=== PATIENT | male | born 1930 | race Caucasian/White ===

== ENCOUNTER 2016-06-08 09:23 | Emergency (ER) | payer MEDICARE ==
[2016-06-08] MEDS ORDERED: Ondansetron ODT 4 MG TAB ONE (09:46)
[2016-06-08 10:13] LABS: Bacteria/HPF 2+ HPF (None Seen); Squamous Epithelial 0-3 HPF (0-3)
[2016-06-08 10:27] LABS: ALT (SGPT) 14 U/L (0-55); AST (SGOT) 12 U/L (5-34); Alkaline Phosphatase 57 U/L (40-150); Anion Gap 14 mmol/L (10-20); BUN (Urea Nitrogen) 39 mg/dL (8.4-25.7); Bilirubin, Total 1.8 mg/dL (0.2-1.2); Calc. Creatinine Clearance 0 mL/min (70-130); Calcium 8.6 mg/dL (7.8-10.44); Carbon Dioxide 21 mmol/L (23-31); Chloride 105 mmol/L (98-107); Estimated GFR-MDRD 40; Globulin 2.7 g/dL (2.4-3.5); Protein, Total 6.5 g/dL (5.8-8.1)
[2016-06-08 11:01] LABS: Band 3 % (5-11); Hematocrit 40.7 % (42.0-52.0); Mean Platelet Volume 8.2 fL (7.4-10.4); Neutrophil 63 % (42-75); Red Blood Cell (RBC) Count 4.25 mill/uL (4.70-6.10); White Blood Cell (WBC) Count 29.3 thou/uL (4.8-10.8)
[2016-06-08] MEDS ORDERED: Sodium Chloride 0.9% 500 ML ONE (11:03)
[2016-06-08] MEDS ORDERED: cefTRIAXone\\ROCEPHIN 1 GM VIAL ONE (11:03)
--- NOTE | 2016-06-08 12:26 | ERRECORD ---
[facility] EMERGENCY RECORD HPI UTI (11:05 [facility]) CHIEF COMPLAINT: Patient presents for evaluation of urinary tract infection signs or symptoms:, dysuria, frequency, Patient presents for evaluation of Pt with UTI symptoms since yesterday. Also feels 'bad all over'. Dry heaves this am. Still with nausea. No other symptoms. HISTORIAN: History provided by patient. QUALITY: no pain. TIME COURSE: Gradual onset of symptoms, Symptoms are worsening, are constant. ASSOCIATED WITH: No associated abdominal pain, No associated chills, Associated with diarrhea, Number of times: 2 today, 3 yesterday, No associated fever, No associated flank pain, Associated with loss of appetite, Associated with nausea. EXACERBATED BY: Patient's condition exacerbated by nothing. RELIEVED BY: Patient's condition relieved by nothing. ROS (11:06 OY) CONSTITUTIONAL: Historian denies chills, denies fever. EYES: Historian denies eye pain, denies eye redness, denies eye discharge. ENT: Historian denies rhinorrhea, denies sore throat. CARDIOVASCULAR: Historian denies chest pain. RESPIRATORY: Historian denies cough, denies shortness of breath, denies sputum. GI: Historian denies abdominal pain, reports diarrhea, reports nausea. dry heaves. MUSCULOSKELETAL: Historian denies back pain. NEUROLOGIC: Historian denies dizziness, denies headache. PAST MEDICAL HISTORY MEDICAL HISTORY: Flu vaccine not up to date, Tetanus immunization up to date, Pneumococcal vaccine up to date, Past medical history includes pulmonary disease, pneumonia, HEART PROBLEM , HEART FAILURE , CHF history of hyperlipidemia, high cholesterol, includes history of hypertension. right femur fracture x2, right hip shattered. (09:33 [facility]) MALE SURGICAL HISTORY: Surgical history of cholecystectomy, BILATERAL HIP REPLACEMENT BACK SURGERY X2 LEFT KNEE SURGERY. RIGHT ROTATOR CUFF. LEFT HERNIA REPAIR. (09:33 [facility]) PSYCHIATRIC HISTORY: No previous psychiatric history, no history of suicidal ideations. (09:33 [facility]) SOCIAL HISTORY: Patient denies alcohol use, Patient denies drug use, Patient is a former tobacco user, smoked cigarettes, Patient quit smoking more than 10 years ago, Lives at home, alone. (09:33 [facility]) NOTES: Nursing records reviewed, Agree with nursing records. (11:07 OY) KNOWN ALLERGIES &a-1R&a+25V*p+0X*[id number]*c202B*c15G*c2P*p-0X&a-25V&a+1R Name: Tammie Black : 1930 M86 MedRec: [id number] AcctNum: [id number] Prepared: Sat Jun 08, 2016 13:19 by Interface Page 1 of 3 pMD [facility] EMERGENCY RECORD No Known Allergies (Unconfirmed) No Known Drug Allergies CURRENT MEDICATIONS (09:30 [facility]) losartan: TABLET : Strength - 50 mg : ORAL Patient Dose: 50 mg Oral once a day (in the morning). simvastatin: TABLET : Strength - 40 mg : ORAL Patient Dose: 40 mg Oral once a day (at bedtime). carvedilol: TABLET : Strength - 6.25 mg : ORAL Patient Dose: 10 mg Oral 2 times a day. VITAL SIGNS VITAL SIGNS: BP: 94/53, Pulse: 80, Resp: 18, Temp: 99.0 (Oral), Pain: 0, O2 sat: 94 on Room Air, Time: 06/08/2016 09:30. (09:30 [facility]) BP: 121/59, Pulse: 93, Resp: 18, Pain: 0, O2 sat: 94 on Room Air, Time: 06/08/2016 11:01. (11:01 [facility]) BP: 135/86, Pulse: 86, Resp: 18, Temp: 98.6 (Oral), Pain: 0, O2 sat: 96 on Room Air, Time: 06/08/2016 12:45. (12:45 [facility]) PHYSICAL EXAM (11:06 [facility]) CONSTITUTIONAL: Vital signs reviewed, Patient appears non toxic, Patient alert and oriented to person, place and time. EYES: Eye exam included findings of eyelids normal to inspection, Pupils equally round and reactive to light, Conjunctiva normal. ENT: Pharynx exam normal, Uvula exam normal, Tonsil exam normal, Mouth exam normal, mucous membranes moist. NECK: Neck exam included findings of normal range of motion, Trachea midline. RESPIRATORY CHEST: Respiratory exam included findings of no respiratory distress, Breath sounds clear, No wheezing, No rales, No rhonchi. CARDIOVASCULAR: Cardiovascular exam included findings of heart rate regular rate and rhythm, Heart sounds normal. ABDOMEN MALE: Abdominal exam included findings of abdomen nontender, Bowel sounds normal. BACK: Back exam included findings of normal inspection. UPPER EXTREMITY: Upper extremity exam included findings of inspection normal, Radial pulse normal, no cyanosis, no clubbing, no edema. LOWER EXTREMITY: Lower extremity exam included findings of inspection normal, no edema, no calf tenderness. NEURO: Jordyn coma scale 15, Neuro exam findings include patient oriented to person, place and time, Speech normal. SKIN: Skin exam included findings of skin warm, dry, and normal in color, no rash. PSYCHIATRIC: Normal affect. &a-1R&a+25V*p+0X*[id number]*c202B*c15G*c2P*p-0X&a-25V&a+1R Name: Tammie Black : 1930 M86 MedRec: [id number] AcctNum: [id number] Prepared: Sat Jun 08, 2016 13:19 by Interface Page 2 of 3 pMD [facility] EMERGENCY RECORD MEDICATION ADMINISTRATION SUMMARY Drug Name: cefTRIAXone injection, Dose Ordered: 1 g, Route: IV Piggy Back, Status: Given, Time: 11:50 06/08/2016, Drug Name: *sodium chloride 0.9 % intravenous, Dose Ordered: 500 mL, Route: IV Fluid Infusion, Status: Given, Time: 11:50 06/08/2016, Drug Name: Zofran ODT, Dose Ordered: 4 mg, Route: Oral, Status: Given, Time: 09:50 06/08/2016, *Additional information available in notes, Detailed record available in Medication Service section. DOCTOR NOTES (12:03 JESSICA) TEXT: ER Doctor at [facility] accepted the transfer. PROBLEM LIST No recorded problems DIAGNOSIS (12:09 JESSICA) FINAL: PRIMARY: UTI, ADDITIONAL: DEHYDRATION. PRESCRIPTION No recorded prescriptions DISPOSITION PATIENT: Disposition Type: Transfer, Disposition: [facility]. (12:09 JESSICA) Patient left the department. (13:16 DOMINIC) Navarro: JESSICA=MD Trent, Patric ALFARO=MARIEL Johnson, Shun FISHER=Flora [place] &a-1R&a+25V*p+0X*[id number]*c202B*c15G*c2P*p-0X&a-25V&a+1R Name: Tammie Black : 1930 M86 MedRec: [id number] AcctNum: [id number] Prepared: Gibson Jun 08, 2016 13:19 by Interface Page 3 of 3 pMD [facility]TDD
--- NOTE | 2016-06-08 12:34 | PICIS ---
[facility] EMERGENCY RECORD TRIAGE [facility] TRIAGE NOTES: frequency and incontinence when urinating. patient reports burning when urinating. started taking azo yesterday evening. symptoms started yesterday morning. [facility] PATIENT: NAME: Tammie Black, AGE: 86, GENDER: male, : Sun 1930, TIME OF GREET: FriJun 08, 2016 09:24, PREFERRED LANGUAGE: Spanish, ETHNICITY: Not or , ECODE BILLING MAP: [facility] ER, SSN: [id number], Zip Code: [address], KG WEIGHT: 93.89, PHONE: , , , PERSON ID: [id number]. ([facility] 09[facility]) COMPLAINT: POSSIBLE UTI. ([facility]) ADMISSION: URGENCY: 3 Urgent, ADMISSION SOURCE: Home, TRANSPORT: CAR, BED: ER -02. ([facility] 09[facility]) ASSESSMENT: Assessment: patient appears stable. in NAD distress. (09:33 MCBE) IMMUNIZATIONS: Flu vaccine up to date, Tetanus immunization up to date, Pneumococcal vaccine up to date. (09:33 MCBE) TRIAGE SCREENING: Patient denies suicidal ideation, Patient denies presence of domestic violence. (09:33 MCBE) PROVIDERS: TRIAGE NURSE: Flora Carolina. ([facility] VITAL SIGNS: BP 94/53, Pulse 80, Resp 18, Temp 99.0, (Oral), Pain 0, O2 Sat 94, on Room Air, Time 06/08/2016 09:30. (09:30 MCBE) PREVIOUS VISIT ALLERGIES: No Known Drug Allergies. ([facility]) No Known Drug Allergies. (09:33 MCBE) KNOWN ALLERGIES No Known Allergies (Unconfirmed) No Known Drug Allergies CURRENT MEDICATIONS (09:30 MCBE) losartan: TABLET : Strength - 50 mg : ORAL Patient Dose: 50 mg Oral once a day (in the morning). simvastatin: TABLET : Strength - 40 mg : ORAL Patient Dose: 40 mg Oral once a day (at bedtime). carvedilol: TABLET : Strength - 6.25 mg : ORAL Patient Dose: 10 mg Oral 2 times a day. VITAL SIGNS VITAL SIGNS: BP: 94/53, Pulse: 80, Resp: 18, Temp: 99.0 (Oral), Pain: 0, O2 sat: 94 on Room Air, Time: 06/08/2016 09:30. (09:30 MCBE) BP: 121/59, Pulse: 93, Resp: 18, Pain: 0, O2 sat: 94 on Room Air, Time: 06/08/2016 11:01. (11:01 MCBE) BP: 135/86, Pulse: 86, Resp: 18, Temp: 98.6 (Oral), Pain: 0, O2 sat: 96 &a-1R&a+25V*p+0X*l4004Z*c202B*c15G*c2P*p-0X&a-25V&a+1R Name: Tammie Black : 1930 M86 MedRec: [id number] AcctNum: [id number] Prepared: Sat Jun 08, 2016 13:25 by Interface Page 1 of 9 pMD [facility] EMERGENCY RECORD on Room Air, Time: 06/08/2016 12:45. (12:45 JPAR) NURSING ASSESSMENT: FALL RISK (12:29 MCBE) FALL RISK: Fall risk assessment findings include: History of falls (5), Sensory deficits (1), Impaired mobility (3), Elimination problems (3), Total score 12. NURSING ASSESSMENT: GENITOURINARY (09:36 MCBE) CONSTITUTIONAL: Complex assessment performed, Patient arrives ambulatory, Gait steady, History obtained from patient, Patient appears comfortable, Patient cooperative, Patient alert, Oriented to person, place and time, Skin warm, Skin dry, Skin normal in color, Mucous membranes pink, Mucous membranes moist, Patient is well-groomed. PAIN MALE: Patient rates pain as 0 out of 10, pain upon urination. GENITOURINARY MALE: Associated with urinary complaints described as, burning, frequency, incontinence, Date and time of last void: 06/08/2016 09:37. ABDOMEN: Abdomen assessment findings include abdomen symmetrical, Abdomen soft, non-tender, Associated with nausea, no associated vomiting, no associated diarrhea. NURSING ASSESSMENT: SKIN (12:29 MCBE) SKIN: Skin assessment findings include skin warm, Skin dry, Skin normal in color, Inspection findings include: No pressure ulcer to the shoulder, Inspection findings include no pressure ulcer to the elbow, Inspection findings include no pressure ulcers to the hip, Inspection findings include no pressure ulcer to the sacrum, Inspection findings include no pressure ulcer to the heel, Inspection findings include no pressure ulcer, Inspection findings include no pressure ulcer. LANDY SCALE: (4) Sensory perception has no impairment, (4) Skin is rarely moist, (4) Patient walks frequently, (4) No mobility limitations, (3) Adequate nutrition, (3) Patient has no apparent problem moving, Landy Risk Total: 22. NURSING PROCEDURE: BEDSIDE SIRS TESTING (12:29 MCBE) SCORES: Heart Rate 55-109 (0), Temp range 96.8-101.1 (0), respiratory rate 12-24 (0), Latest WBC 20-39.9 (2), Mental Status altered: no (0), Total SIRS Score 2, Infection or Suspected Infection: No. NURSING PROCEDURE: IV PATIENT IDENITIFIER: Patient actively involved in identification process, Patient's identity verified by patient stating name, Patient's identity verified by patient stating date, Patient's identity verified by hospital ID bracelet, Patient's identity &a-1R&a+25V*p+0X*o1629R*c202B*c15G*c2P*p-0X&a-25V&a+1R Name: Tammie Black : 1930 M86 MedRec: [id number] AcctNum: [id number] Prepared: Sat Jun 08, 2016 13:25 by Interface Page 2 of 9 D [facility] EMERGENCY RECORD verified by family member. (11:25 JPAR) Patient actively involved in identification process, Patient's identity verified by patient stating name, Patient's identity verified by patient stating date, Patient's identity verified by hospital ID bracelet. (11:20 MCBE) Patient actively involved in identification process, Patient's identity verified by patient stating name, Patient's identity verified by patient stating date. (11:43 REZE) IV SITE 1: IV therapy indicated for hydration, IV therapy indicated for medication administration, IV established, to the right antecubital, using a 20 gauge catheter, in one attempt, Unable to obtain IV access, IV site prepped with chloraprep. (11:20 MCBE) IV therapy indicated for hydration, IV therapy indicated for medication administration, IV established, to the left forearm, using a 22 gauge catheter, in one attempt, IV site prepped with chloraprep, Saline lock established, Flushed with normal saline (mls): 10 ml, Notes: unable to obtain labs. (11:43 REZE) IV SITE 2: IV therapy indicated for hydration, IV therapy indicated for medication administration, IV therapy indicated for Urosepsis, IV established, to the left antecubital, using a 20 gauge catheter, in three attempts, Unable to obtain IV access. (11:25 JPAR) FOLLOW-UP SITE 1: After procedure, sterile transparent dressing applied. (11:43 REZE) FOLLOW-UP SITE 2: After procedure, 2x2 dressing applied, After procedure, no drainage at IV site, After procedure, no swelling at IV site, After procedure, no redness at IV site. (11:25 JPAR) NOTES: Patient tolerated procedure well. (11:43 REZE) SAFETY: Side rails up, Cart/Stretcher in lowest position, Call light within reach, Hospital ID band on. (11:25 JPAR) NURSING PROCEDURE: LAB DRAW (09:51 MCBE) PATIENT IDENTIFIER: Patient actively involved in identification process, Patient's identity verified by patient stating name, Patient's identity verified by patient stating date, Patient's identity verified by hospital ID bracelet. LAB DRAW: Initial lab draw performed, by venipuncture, from right hand, in one attempt, Lab specimens labeled in the presence of the patient and sent to lab. NURSING PROCEDURE: NURSE NOTES (10:52 MCBE) NURSES NOTES: Notes: lab informed nurses and tech at nurses station that patient's WBC was in the high 20s around 1030. lab results have not posted at this time. lab has left at this time. patient is voicing concern about timing and care provided. informed patient that we are still waiting on lab results. Shun FLOYD has contacted house sup to inform of situation. nurses and house sup are trying to get a hold of lab that is not on campus at this time. will continue to try to contact lab. &a-1R&a+25V*p+0X*c2922G*c202B*c15G*c2P*p-0X&a-25V&a+1R Name: Tammie Black : 1930 M86 MedRec: [id number] AcctNum: [id number] Prepared: Sat Jun 08, 2016 13:25 by Interface Page 3 of 9 pMD [facility] EMERGENCY RECORD NURSING PROCEDURE: TRANSFER (13:15 JPAR) TRANSFER: Reason for transfer primary physician request, Reason for transfer need for specialized care, Diagnosis: UROSEPSIS, Accepting institution: [place], Report called to receiving facility, Summary of Care printed. BELONGINGS: Belongings and valuables with patient upon arrival to the Emergency Department include:, Belongings and valuables with patient at time of discharge include:, pants, shirt, shoes, socks, eye glasses, Notes: WALKER AND CLOTHING SENT WITH EMS. NURSING PROCEDURE: URINE COLLECTION (09:55 [facility]) PATIENT IDENTIFIER: Patient actively involved in identification process, Patient's identity verified by patient stating name, Patient's identity verified by patient stating date, Patient's identity verified by hospital ID bracelet. URINE COLLECTION MALE: Urine collected by void, urine orange in color, and cloudy, sediment noted, Specimen labeled in the presence of the patient and sent to lab, Specimen obtained for culture labeled in the presence of the patient and sent to lab, patient reports taking azo pills and acknowledges that urine is orange. ORDER DETAILS Order Name: CBC with Differential, Status: Active, Time: 09:44 06/08/2016, User: JESSICA, - Ordered for: MD Newman Joshua, - Entered by: MD Newman Joshua - Sat Jun 08, 2016 09:44, - Quantity: 1, Order Name: Comprehensive Metabolic Panel, Status: Active, Time: 09:44 06/08/2016, User: JESSICA, - Ordered for: MD Newman Joshua, - Entered by: MD Newman Joshua - Sat Jun 08, 2016 09:44, - Quantity: 1, Order Name: Culture, Blood, Status: Active, Time: 11:01 06/08/2016, User: JESSICA, - Ordered for: MD Newman Joshua, - Entered by: MD Newman Joshua - [place] Jun 08, 2016 11:01, - Quantity: 1, Order Name: Culture, Urine, Status: Active, Time: 10:20 06/08/2016, User: PHILLIP, - Ordered for: MD Newman Joshua, - Entered by: Flora Carolina - Sat Jun 08, 2016 10:20, - Quantity: 1, Order Name: Lactic Acid with repeat, Status: Active, Time: 11:02 06/08/2016, User: JESSICA, - Ordered for: MD Newman Joshua, - Entered by: MD Newman Joshua - Sat Jun 08, 2016 11:02, - Quantity: 1, &a-1R&a+25V*p+0X*d7522C*c202B*c15G*c2P*p-0X&a-25V&a+1R Name: Tammie Black : 1930 M86 MedRec: [id number] AcctNum: [id number] Prepared: Sat Jun 08, 2016 13:25 by Interface Page 4 of 9 [facility] EMERGENCY RECORD Order Name: SALINE LOCK, Status: Done, Time: 11:02 06/08/2016, User: PHILLIP, - Ordered for: MD Newman Joshua, - Entered by: MD Newman Joshua - Sat Jun 08, 2016 11:01, - Quantity: 1, Order Name: Urinalysis w/ Rflx Microscopic, Status: Active, Time: 09:36 06/08/2016, User: JESSICA, - Ordered for: MD Newman Joshua, - Entered by: MD Newman Joshua - Sat Jun 08, 2016 09:36, - Quantity: 1. MEDICATION ADMINISTRATION SUMMARY Drug Name: cefTRIAXone injection, Dose Ordered: 1 g, Route: IV Piggy Back, Status: Given, Time: 11:50 06/08/2016, Drug Name: *sodium chloride 0.9 % intravenous, Dose Ordered: 500 mL, Route: IV Fluid Infusion, Status: Given, Time: 11:50 06/08/2016, Drug Name: Nigel BRADLEY, Dose Ordered: 4 mg, Route: Oral, Status: Given, Time: 09:50 06/08/2016, *Additional information available in notes, Detailed record available in Medication Service section. MEDICATION SERVICE cefTRIAXone injection: Order: cefTRIAXone injection (ceftriaxone sodium) - Dose: 1 g : IV Piggy Back Ordered by: Patric Newman MD Entered by: Patric Newman MD Sat Jun 08, 2016 11:02 , Acknowledged by: Flora Carolina Sat Jun 08, 2016 11:31 Documented as given by: Shun Johnson RN Sat Jun 08, 2016 11:50 Patient, Medication, Dose, Route and Time verified prior to administration. IV SITE #1 added to existing IV Fluid, Type: NS, Amount of fluid remainin, Awake and alert- acceptable, Connections checked prior to administration, Line traced prior to administration, Catheter placement confirmed via flush prior to administration, IV site without signs or symptoms of infiltration during medication administration, No swelling during administration, No drainage during administration, IV flushed after administration, Correct patient, time, route, dose and medication confirmed prior to administration, Patient advised of actions and side-effects prior to administration, Allergies confirmed and medications reviewed prior to administration, Patient in position of comfort, Side rails up, Cart in lowest position, Call light in reach. sodium chloride 0.9 % intravenous: Order: sodium chloride 0.9 % intravenous (0.9 % sodium chloride) - Dose: 500 mL : IV Fluid Infusion Notes: (Bolus) Ordered by: Patric Newman MD Entered by: Patric Newman MD Sat Jun 08, 2016 11:02 , Acknowledged by: Flora Carolina Sat Jun 08, 2016 11:31 Documented as given by: Shun Johnson RN Sat Jun 08, 2016 11:50 &a-1R&a+25V*p+0X*y4456Q*c202B*c15G*c2P*p-0X&a-25V&a+1R Name: Tammie Black : 1930 M86 MedRec: [id number] AcctNum: [id number] Prepared: Sat Jun 08, 2016 13:25 by Interface Page 5 of 9 pMD [facility] EMERGENCY RECORD Patient, Medication, Dose, Route and Time verified prior to administration. IV SITE #1 IV fluids established for hydration, IV SITE #1 into left shoulder, IV SITE #1 1st bag hung, amount 500ml hung, IV SITE #1 bolus of 500 ml established, IV SITE #1 Rate of infusion (non-bolus) Infusing at 250 ml/hr, via primary tubing, IV SITE #1 on IV pump, Awake and alert- acceptable, Connections checked prior to administration, Line traced prior to administration, Catheter placement confirmed via flush prior to administration, IV site without signs or symptoms of infiltration during medication administration, No swelling during administration, No drainage during administration, IV flushed after administration, Correct patient, time, route, dose and medication confirmed prior to administration, Patient advised of actions and side-effects prior to administration, Allergies confirmed and medications reviewed prior to administration, Patient in position of comfort, Side rails up, Cart in lowest position, Call light in reach. Zofran ODT: Order: Zofran ODT (ondansetron) - Dose: 4 mg : Oral Ordered by: Patric Newman MD Entered by: Patric Newman MD Sat Jun 08, 2016 09:43 Documented as given by: Flora Carolina Sat Jun 08, 2016 09:50 Patient, Medication, Dose, Route and Time verified prior to administration. Amount given: 4mg, Site: Medication administered S.L., Patient appears Awake and alert- acceptable, Correct patient, time, route, dose and medication confirmed prior to administration, Patient advised of actions and side-effects prior to administration, Allergies confirmed and medications reviewed prior to administration, Patient in position of comfort, Side rails up, Cart in lowest position, Family at bedside, Call light in reach. HPI UTI (11:05 [facility]) CHIEF COMPLAINT: Patient presents for evaluation of urinary tract infection signs or symptoms:, dysuria, frequency, Patient presents for evaluation of Pt with UTI symptoms since yesterday. Also feels 'bad all over'. Dry heaves this am. Still with nausea. No other symptoms. HISTORIAN: History provided by patient. QUALITY: no pain. TIME COURSE: Gradual onset of symptoms, Symptoms are worsening, are constant. ASSOCIATED WITH: No associated abdominal pain, No associated chills, Associated with diarrhea, Number of times: 2 today, 3 yesterday, No associated fever, No associated flank pain, Associated with loss of appetite, Associated with nausea. EXACERBATED BY: Patient's condition exacerbated by nothing. RELIEVED BY: Patient's condition relieved by nothing. ROS (11:06 [facility]) &a-1R&a+25V*p+0X*y5344H*c202B*c15G*c2P*p-0X&a-25V&a+1R Name: Tammie Black : 1930 M86 MedRec: [id number] AcctNum: [id number] Prepared: Sat Jun 08, 2016 13:25 by Interface Page 6 of 9 pMD [facility] EMERGENCY RECORD CONSTITUTIONAL: Historian denies chills, denies fever. EYES: Historian denies eye pain, denies eye redness, denies eye discharge. ENT: Historian denies rhinorrhea, denies sore throat. CARDIOVASCULAR: Historian denies chest pain. RESPIRATORY: Historian denies cough, denies shortness of breath, denies sputum. GI: Historian denies abdominal pain, reports diarrhea, reports nausea. dry heaves. MUSCULOSKELETAL: Historian denies back pain. NEUROLOGIC: Historian denies dizziness, denies headache. PAST MEDICAL HISTORY MEDICAL HISTORY: Flu vaccine not up to date, Tetanus immunization up to date, Pneumococcal vaccine up to date, Past medical history includes pulmonary disease, pneumonia, HEART PROBLEM , HEART FAILURE , CHF history of hyperlipidemia, high cholesterol, includes history of hypertension. right femur fracture x2, right hip shattered. (09:33 BE) MALE SURGICAL HISTORY: Surgical history of cholecystectomy, BILATERAL HIP REPLACEMENT BACK SURGERY X2 LEFT KNEE SURGERY. RIGHT ROTATOR CUFF. LEFT HERNIA REPAIR. (09:33 BE) PSYCHIATRIC HISTORY: No previous psychiatric history, no history of suicidal ideations. (09:33 BE) SOCIAL HISTORY: Patient denies alcohol use, Patient denies drug use, Patient is a former tobacco user, smoked cigarettes, Patient quit smoking more than 10 years ago, Lives at home, alone. (09:33 BE) NOTES: Nursing records reviewed, Agree with nursing records. (11:07 [facility]) PHYSICAL EXAM (11:06 [facility]) CONSTITUTIONAL: Vital signs reviewed, Patient appears non toxic, Patient alert and oriented to person, place and time. EYES: Eye exam included findings of eyelids normal to inspection, Pupils equally round and reactive to light, Conjunctiva normal. ENT: Pharynx exam normal, Uvula exam normal, Tonsil exam normal, Mouth exam normal, mucous membranes moist. NECK: Neck exam included findings of normal range of motion, Trachea midline. RESPIRATORY CHEST: Respiratory exam included findings of no respiratory distress, Breath sounds clear, No wheezing, No rales, No rhonchi. CARDIOVASCULAR: Cardiovascular exam included findings of heart rate regular rate and rhythm, Heart sounds normal. ABDOMEN MALE: Abdominal exam included findings of abdomen nontender, Bowel sounds normal. BACK: Back exam included findings of normal inspection. UPPER EXTREMITY: Upper extremity exam included findings of inspection normal, Radial pulse normal, no cyanosis, no clubbing, no &a-1R&a+25V*p+0X*e9889S*c202B*c15G*c2P*p-0X&a-25V&a+1R Name: Tammie Black : 1930 M86 MedRec: [id number] AcctNum: [id number] Prepared: Sat Jun 08, 2016 13:25 by Interface Page 7 of 9 pMD [facility] EMERGENCY RECORD edema. LOWER EXTREMITY: Lower extremity exam included findings of inspection normal, no edema, no calf tenderness. NEURO: Jordyn coma scale 15, Neuro exam findings include patient oriented to person, place and time, Speech normal. SKIN: Skin exam included findings of skin warm, dry, and normal in color, no rash. PSYCHIATRIC: Normal affect. EVENTS TRANSFER: Triage to Emergency Emergency Room -02. (Sat Jun 08, 2016 09:29 MCBE) Removed from Emergency Emergency Room -02. (13:16 JPAR) DOCTOR NOTES (12:03 JLOY) TEXT: ER Doctor at [facility] accepted the transfer. PROBLEM LIST No recorded problems DIAGNOSIS (12:09 JLOY) FINAL: PRIMARY: UTI, ADDITIONAL: DEHYDRATION. DISPOSITION PATIENT: Disposition Type: Transfer, Disposition: [facility]. (12:09 JLOY) Patient left the department. (13:16 JPAR) PRESCRIPTION No recorded prescriptions IMAGING CONSENTS: Image captured from scanner. (12:24 BWIS) *MEMORANDUM OF TRANSFER: Image captured from scanner. (12:24 BWIS) *SUPPLY CHARGE SHEET: Image captured from scanner. (13:18 MCBE) SBAR: Image captured from scanner. (13:18 MCBE) TRANSFER WORKSHEET: Image captured from scanner. (13:18 MCBE) ADMIN (12:09 [facility]) DIGITAL SIGNATURE: MD Trent, Patric. RESULTS LABORATORY: Comprehensive Metabolic Panel Collection DT: Sat Jun 08, 2016 09:59, *Sodium 135 - L mmol/L, Range (136-145), Potassium 4.6 mmol/L, Range (3.5-5.1), Chloride 105 mmol/L, Range (98-107), *Carbon Dioxide 21 - L mmol/L, Range (23-31), Anion Gap 14 mmol/L, Range (10-20), &a-1R&a+25V*p+0X*p0398H*c202B*c15G*c2P*p-0X&a-25V&a+1R Name: Tammie Black : 1930 M86 MedRec: [id number] AcctNum: [id number] Prepared: Sat Jun 08, 2016 13:25 by Interface Page 8 of 9 pMD [facility] EMERGENCY RECORD *BUN (Urea Nitrogen) 39 - H mg/dL, Range (8.4-25.7), *Creatinine 1.65 - H mg/dL, Range (0.7-1.3), Estimated GFR-MDRD 40 , Reference Range for Estimated GFR: Greater than 90, mL/min/1.73 m2 NOTE: The MDRD equation has not been validated for use, with the elderly (over 70 years of age), women, patients with, serious comorbid condition or persons with extremes of body size, muscle, mass, or nutritional status. , *Glucose 169 - H mg/dL, Range (83-110), Calcium 8.6 mg/dL, Range (7.8-10.44), *Bilirubin, Total 1.8 - H mg/dL, Range (0.2-1.2), Protein, Total 6.5 g/dL, Range (5.8-8.1), NOTE: Plasma values are generally 0.3 to 0.5 g/dL higher than serum values, due to the presence of fibrinogen. , Albumin 3.8 g/dL, Range (3.4-4.8), Globulin 2.7 g/dL, Range (2.4-3.5), Alb/Glob Ratio 1.4 g/dL, Range (1.2-2.2), Alkaline Phosphatase 57 U/L, Range (40-150), AST (SGOT) 12 U/L, Range (5-34), ALT (SGPT) 14 U/L, Range (0-55). (10:31 MCBE) Urine Microscopic ONLY [facility], RBC/HPF 4-6 HPF, Range (0-3), MICROSCOPIC ONLY, UNABLE TO PERFORM URINE DIP DUE TO COLOR INTERFERENCE.NW, *WBC/HPF Greater Than 50-TNTC HPF, * - H , Range (0-3), Squamous Epithelial 0-3 HPF, Range (0-3), *Bacteria/HPF 2+ - H HPF, Range (None Seen). (10:31 MCBE) CBC with Differential [facility] 09[facility]59, *White Blood Cell (WBC) Count 29.3 - H thou/uL, Range (4.8-10.8), *Red Blood Cell (RBC) Count 4.25 - L mill/uL, Range (4.70-6.10), *Hemoglobin 13.9 - L g/dL, Range (14.0-18.0), *Hematocrit 40.7 - L %, Range (42.0-52.0), *Mean Corpuscular Volume 95.8 - H fl, Range (80.0-94.0), *Mean Corpuscular Hemoglobin 32.6 - H pg, Range (27.0-31.0), Mean Corpuscular HGB CONC 34.0 g/dL, Range (32.0-36.0), RBC Distribution Width 12.1 %, Range (11.5-14.5), Platelet Count 164 thou/uL, Range (130-400), Mean Platelet Volume 8.2 fL, Range (7.4-10.4), Neutrophil 63 %, Range (42-75), *Band 3 - L %, Range (5-11), Lymphocytes 29 %, Range (21-51), Monocytes 5 %, Range (0-10). (11:03 JESSICA) Navarro: MARIA DE JESUS=RUTH Dawkins Bobbie JLOY=MD Trent, Patric ALFARO=MARIEL Johnson, Shun FISHER=Flora Carolina=MARIEL Reyes, Florinda &a-1R&a+25V*p+0X*w8538W*c202B*c15G*c2P*p-0X&a-25V&a+1R Name: Denisse Blacke : 1930 M86 MedRec: [id number] AcctNum: [id number] Prepared: [place] Jun 08, 2016 13:25 by Interface Page 9 of 9 pMD MTDD
[2016-06-08 12:36] LABS: Lactic Acid - Sepsis 1.4 mmol/L (0.5-2.2)
== END 2016-06-08 12:51 | disposition short-term general hospital (02) ==
LOC: NAV ERS 09:23
DX: N39.0 Urinary tract infection, site not specified (principal); E86.0 Dehydration; J18.9 Pneumonia, unspecified organism; I50.9 Heart failure, unspecified; E78.5 Hyperlipidemia, unspecified; I10 Essential (primary) hypertension; E78.00 Pure hypercholesterolemia, unspecified; Z87.891 Personal history of nicotine dependence
CPT/HCPCS: 80053; 81015; 83605; 85025; 87040; 87077; 87086; 87186; 96365; J0696; J7050; Q0162

== ENCOUNTER 2016-09-28 22:21 | Emergency (ER) | payer MEDICARE ==
[2016-09-28 23:28] LABS: Blood, Urine Large (Negative); Clarity Cloudy (Clear); Glucose, Urine (Dipstick) Negative (Negative); Leukocyte Small (Negative); Nitrite Positive (Negative); Protein, Urine (Dipstick) > or equal to 300 mg/dL (Neg-Trace); Specific Gravity, Urine 1.025 (1.005-1.030)
[2016-09-28 23:37] LABS: Eosinophils 2 % (0-10); Hemoglobin 12.9 g/dL (14.0-18.0); Lymphocytes 52 % (21-51); MDiff Complete? YES; Mean Corpuscular HGB CONC 34.6 g/dL (32.0-36.0); Mean Corpuscular Hemoglobin 32.6 pg (27.0-31.0); Mean Corpuscular Volume 94.3 fl (80.0-94.0); Mean Platelet Volume 9.1 fL (7.4-10.4); Monocytes 7 % (0-10); Neutrophil 32 % (42-75); PLT Morphology Comment Appears Adequate; Platelet Count 154 thou/uL (130-400); RBC Distribution Width 11.7 % (11.5-14.5); RBC Morphology Normal; Reactive Lymphocytes 5 % (0-10); Red Blood Cell (RBC) Count 3.96 mill/uL (4.70-6.10)
[2016-09-28 23:38] LABS: Bilirubin Negative (Negative); Icto Negative (Negative)
[2016-09-28 23:39] LABS: Bacteria/HPF 3+ HPF (None Seen)
[2016-09-28 23:44] LABS: ALT (SGPT) 15 U/L (8-55); AST (SGOT) 21 U/L (5-34); Albumin 3.9 g/dL (3.4-4.8); Anion Gap 17 mmol/L (10-20); BUN (Urea Nitrogen) 22 mg/dL (8.4-25.7); Bilirubin, Total 0.8 mg/dL (0.2-1.2); Calc. Creatinine Clearance 0 mL/min (70-130); Carbon Dioxide 21 mmol/L (23-31); Chloride 104 mmol/L (98-107); Estimated GFR-MDRD 42; Globulin 2.8 g/dL (2.4-3.5); Glucose 88 mg/dL (83-110); Potassium 3.9 mmol/L (3.5-5.1); Protein, Total 6.7 g/dL (5.8-8.1); Sodium 138 mmol/L (136-145)
[2016-09-28 23:47] LABS: RBC/HPF GREATER THAN 50-TNTC HPF (0-3)
[2016-09-28] MEDS ORDERED: cefTRIAXone\\ROCEPHIN 2 GM VIAL ONE (23:58)
[2016-09-28] MEDS ORDERED: Acetaminophen 500 MG TAB ONE (23:58)
[2016-09-28] MEDS ORDERED: Sodium Chloride 0.9% 500 ML ONE (23:58)
[2016-09-28] MEDS ORDERED: Sodium Chloride 0.9% 100 ML ONE (23:59)
[2016-09-29] LABS: Alkaline Phosphatase 60 U/L (40-150)
== END 2016-09-29 01:03 | disposition home or self-care (01) ==
LOC: NAV ERS 22:21
DX: N39.0 Urinary tract infection, site not specified (principal)
CPT/HCPCS: 36415; 51702; 80053; 81003; 81015; 83605; 85025; 87086; 96365; J0696; J7050

== ENCOUNTER 2016-09-30 09:13 | Emergency (ER) | payer MEDICARE | END 2016-09-30 10:07 | disposition home or self-care (01) | LOC: NAV ERS 09:13 | DX: N39.0 Urinary tract infection, site not specified (principal); I11.0 Hypertensive heart disease with heart failure; I50.9 Heart failure, unspecified; E78.5 Hyperlipidemia, unspecified; Z87.01 Personal history of pneumonia (recurrent); Z87.891 Personal history of nicotine dependence; Z79.899 Other long term (current) drug therapy | CPT/HCPCS: 99283 ==

== ENCOUNTER 2017-02-02 14:33 | Emergency (ER) | payer MEDICARE, OTHER ==
[2017-02-02 15:51] LABS: #Basophils 0.1 thou/uL (0.0-0.2); #Eosinphils 0.1 thou/uL (0.0-0.7); #Lymphocytes 3.9 thou/uL (1.20-3.40); #Monocytes 0.7 thou/uL (0.11-0.59); #Neutrophils 1.9 thou/uL (1.40-6.50); %Basophils 1.6 % (0.0-1.0); %Eosinophils 1.8 % (0.0-10.0); %Lymphocytes 57.7 % (21.0-51.0); %Monocytes 10.5 % (0.0-10.0); %Neutrophils 28.5 % (42.0-75.0); Differential Comment SCANNED; Hemoglobin 11.9 g/dL (14.0-18.0); Mean Corpuscular HGB CONC 32.6 g/dL (32.0-36.0); Mean Corpuscular Hemoglobin 30.8 pg (27.0-31.0); Mean Corpuscular Volume 94.5 fl (80.0-94.0); Mean Platelet Volume 8.1 fL (7.4-10.4); Platelet Count 124 thou/uL (130-400); RBC Distribution Width 11.9 % (11.5-14.5); Red Blood Cell (RBC) Count 3.87 mill/uL (4.70-6.10); White Blood Cell (WBC) Count 6.8 thou/uL (4.8-10.8)
[2017-02-02 16:00] LABS: ALT (SGPT) 15 U/L (8-55); AST (SGOT) 20 U/L (5-34); Albumin 3.6 g/dL (3.4-4.8); Alkaline Phosphatase 57 U/L (40-150); Anion Gap 14 mmol/L (10-20); BUN (Urea Nitrogen) 16 mg/dL (8.4-25.7); Bilirubin, Total 0.8 mg/dL (0.2-1.2); Calc. Creatinine Clearance 0 mL/min (70-130); Calcium 8.8 mg/dL (7.8-10.44); Carbon Dioxide 22 mmol/L (23-31); Chloride 106 mmol/L (98-107); Estimated GFR-MDRD 45; Globulin 2.3 g/dL (2.4-3.5); Glucose 96 mg/dL (83-110); Potassium 4.1 mmol/L (3.5-5.1); Protein, Total 5.9 g/dL (5.8-8.1); Sodium 138 mmol/L (136-145)
[2017-02-02 16:29] LABS: Bilirubin Negative (Negative); Blood, Urine Small (Negative); Glucose, Urine (Dipstick) Negative (Negative); Leukocyte Negative (Negative); Nitrite Negative (Negative); Protein, Urine (Dipstick) Negative (Neg-Trace)
[2017-02-02 16:35] LABS: Clarity SL HAZY (Clear)
[2017-02-02 16:40] LABS: RBC/HPF 0-3 HPF (0-3); Squamous Epithelial 0-3 HPF (0-3); WBC/HPF 0-3 HPF (0-3)
== END 2017-02-02 16:54 | disposition home or self-care (01) ==
LOC: NAV ERS 14:33
DX: K52.9 Noninfective gastroenteritis and colitis, unspecified (principal); I11.0 Hypertensive heart disease with heart failure; I50.9 Heart failure, unspecified; E78.5 Hyperlipidemia, unspecified; Z87.891 Personal history of nicotine dependence; Z79.899 Other long term (current) drug therapy
CPT/HCPCS: 36416; 80053; 81003; 81015; 83605; 85025; 96360